=== PATIENT | male | born 1975 | race Caucasian/White ===

== ENCOUNTER 2017-07-31 21:01 | Emergency (ER) | payer SELFPAY ==
[~2017-07-31] VITALS: Ht 193 cm; Wt 74.8 kg
--- NOTE | 2017-07-31 21:01 | NUR ---
[facility] FAMILY; HEADACHE, COUGH, NASAL CONGESTION X 1 DAYS. VSS NAD WILL CONTINUE TO MONITOR FOR ANY CHANGES DURING THE SHIFT.
[2017-07-31] MEDS ORDERED: ONDANSETRON 4 MG TAB.RAPDIS ONE (21:42)
[2017-07-31] MEDS ORDERED: oxyCODONE/APAP (5/325 MG) 1 UDTAB TABLET ONE (21:42)
--- NOTE | 2017-07-31 21:45 | NUR ---
PT OFF TO CT SCAN
[2017-07-31] MEDS ORDERED: oxyCODONE/APAP (5/325 MG) 1 UDTAB TABLET PO ONE (22:00)
[2017-07-31] MEDS ORDERED: ONDANSETRON 4 MG TAB.RAPDIS SL ONE (22:00)
[2017-07-31 23:43] VITALS: BP 122/80
== END 2017-07-31 23:44 | disposition home or self-care (01) ==
LOC: ER 21:03
DX: J32.9 Chronic sinusitis, unspecified (principal); F17.200 Nicotine dependence, unspecified, uncomplicated
CPT/HCPCS: 70450-TC; A4606; Q0162; Z7610

== ENCOUNTER 2021-01-01 07:37 | Emergency (ER) | payer SELFPAY ==
[~2021-01-01] VITALS: Ht 193 cm; Wt 77.1 kg
[2021-01-01 07:44] VITALS: BP 140/73
--- NOTE | 2021-01-01 08:13 | NUR ---
Patient discharged to home in stable condition. Written and verbal after care instructions given. Patient verbalizes understanding of instruction.
== END 2021-01-01 08:13 | disposition home or self-care (01) ==
LOC: ER 07:37
DX: S63.591A Other specified sprain of right wrist, initial encounter (principal); X58.XXXA Exposure to other specified factors, initial encounter; Y93.71 Activity, boxing; Y92.89 Other specified places as the place of occurrence of the external cause; Y99.8 Other external cause status
CPT/HCPCS: 73110

== ENCOUNTER 2021-02-05 07:22 | Emergency (ER) | payer SELFPAY ==
[~2021-02-05] VITALS: Ht 193 cm; Wt 77.1 kg
[2021-02-05] MEDS ORDERED: IBUP-1955 PO (08:06)
[2021-02-05 08:16] VITALS: BP 124/86
== END 2021-02-05 08:13 | disposition home or self-care (01) ==
LOC: ER 07:24
DX: M65.4 Radial styloid tenosynovitis [de Quervain] (principal); F17.200 Nicotine dependence, unspecified, uncomplicated
CPT/HCPCS: 73110

== ENCOUNTER 2023-09-30 07:16 | Emergency (ER) | payer SELFPAY ==
[~2023-09-30] VITALS: Ht 193 cm; Wt 72.6 kg
[~2023-09-30 07:16] MED LIST: IBUP-1955 PO
[2023-09-30 08:05] VITALS: BP 126/83; TEMP 97.9; O2SAT 97
== END 2023-09-30 08:40 | disposition home or self-care (01) ==
LOC: ER 07:24
DX: M79.644 Pain in right finger(s) (principal); F17.200 Nicotine dependence, unspecified, uncomplicated; W20.8XXA Other cause of strike by thrown, projected or falling object, initial encounter; Y93.89 Activity, other specified; Y92.89 Other specified places as the place of occurrence of the external cause; Y99.8 Other external cause status